=== PATIENT | female | born 1930 | race African-American/Black ===

== ENCOUNTER → 2017-11-19 | Outpatient (CLI) | payer BC ==
--- NOTE | 2017-11-20 11:02 | MRI ---
HISTORY: Neck pain and headache Study: MRI cervical spine without contrast Comparison: None Technique: Multiplanar multisequence MRI of the cervical spine was obtained utilizing standard [facility] mental protocol. Findings: Imaging of the cervical spine demonstrates loss of the normal cervical lordosis which may be secondar y to patient positioning versus muscle spasm and/or degenerative change or a combination of both. Klaus tebral alignment is otherwise normal. There is no significant spondylolisthesis. Multilevel moderate to severe loss of disc space height is present throughout the cervical spine. There are also advanced degenerative endplate changes and marginal osteophytosis throughout the cervical spine as well. Mild reactive edema associated with degenerative endplate change is visualized at the C4-C5, C5-C6, C6-C7 , and C7-T1 levels. There are small T2/STIR hyperintense foci within the right and left aspects of th e cervical cord at the level of the C4 superior endplate. 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 Demyelinating disease is less favored. The cord is not expanded. Evaluation of the pre and paraver tebral soft tissues is unremarkable. Incidental note is made of T2 hyperintense cysts and/or degenera ting nodules within the thyroid gland. Also incidentally noted is a retropharyngeal course of the rig ht common carotid artery. C2 -- C3: At the C2-C3 level there is a broad-based disc osteophyte complex as well as uncovertebral spurring and facet hypertrophy, resulting in moderate neuroforaminal compromise on the left but no si gnificant canal stenosis. C3 -- C4: At the C3-C4 level there is a broad-based disc osteophyte complex as well as advanced uncov ertebral spurring and facet hypertrophy, resulting in moderate to severe bilateral neuroforaminal com promise as well as moderate canal stenosis. C4 -- C5: At the C4-C5 level there is a broad-based disc osteophyte complex as well as uncovertebral spurring and facet arthropathy, resulting in moderate to severe neuroforaminal compromise on the left and moderate neuroforaminal compromise on the right as well as [id number] canal stenosis. C5 -- C6: At the C5-C6 level there is a broad-based disc osteophyte complex as well as uncovertebral spurring and facet hypertrophy, all resulting in moderate to severe neuroforaminal compromise on the left and moderate neuroforaminal compromise on the right as well as [id number] canal stenosis. C6 -- C7: At the C6-C7 level there is a broad-based disc osteophyte complex as well as uncovertebral spurring and facet hypertrophy, resulting in moderate bilateral neuroforaminal compromise as well as mild canal stenosis. C7 -- T1: At the C7-T1 level there is a broad-based disc osteophyte complex as well as uncovertebral spurring and facet hypertrophy, resulting in moderate to severe neuroforaminal compromise on the righ t and moderate neuroforaminal compromise on the left as well as minimal canal stenosis. IMPRESSION: 1. Advanced multilevel degenerative disc disease and advanced facet arthropathy, resulting in multile eliud varying degrees of moderate to severe neuroforaminal compromise and [id number] canal stenos es as detailed above. 2. 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 Please see above discussion. Reported By:
== END ==
LOC: RAD 14:59
PROVIDERS: ATTEND Psychiatry & Neurology Neurology
DX: M54.2 Cervicalgia (principal); M25.78 Osteophyte, vertebrae
CPT/HCPCS: 72141